=== PATIENT | female | born 1960 | race Caucasian/White ===

== ENCOUNTER 2018-01-30 11:09 | Emergency (ER) | payer OTHER ==
--- NOTE | 2018-01-30 11:17 | PDOC ---
History of Present Illness - General Chief Complaint: Weakness Stated Complaint: SHAKEY BLOOD SUGAR LOW IN MORNING FOR 2 WEEKS Time Seen by Provider: 01/30/18 11:16 - History of Present Illness Initial Comments: 01/30/18 11:53 Chief complaint: "Shaky" in the mornings with low blood sugar History of present illness: Patient is Georgian, translation by her daughter who speaks Venezuelan well. Patient states that for the last 2 weeks she has awakened in the morning feeling "shaky", and this resolved with eating. She is not known to be diabetic and takes no diabetes medications. However, an inlaw who is diabetic has a glucometer and she has recorded blood sugar levels below 50. Her symptoms do not occur at any other time of day. She eats a normal diet, 3 meals a day, and a bedtime snack. She does not exercise. Past medical history: Hypothyroidism, status post thyroidectomy, maintained on 150 g of Synthroid daily. Hypertension. Elevated cholesterol. Medications: Synthroid, Norvasc, and statin Social history: No tobacco alcohol or nonprescription drugs. Active and without disability Family history: Reviewed and noncontributory including diabetes or other metabolic diseases, cancer, early coronary artery disease, GI or pancreatic disease. Physical exam: Alert and oriented well-developed well-nourished no acute distress cheerful and cooperative Afebrile, vital signs normal No pallor or icterus PERRLA, fundi benign, ENT clear Neck supple without bruit mass or nodes. Thyroid is not palpable. Lungs clear CV regular without murmur rub or gallop 88/m Abdomen soft nontender without mass or organomegaly. Bowel sounds normal. Nondistended No CVAT Extremities no CCE Skin clear, no rash, adequate turgor and wet mucous membranes Neurological no deficits gait stable and unimpaired Impression: Morning hypoglycemia, alleviated with food. No known diabetes and on no diabetic medication. Thyroid disease, hypothyroidism due to surgery, maintained on Synthroid. Thyroid function is uncertain. Plan: CBC, chemistries, lipase, and TSH. Further evaluation and treatment depending on results. Past History - Past Medical History Allergies/Adverse Reactions: Allergies Allergy/AdvReac Type Severity Reaction Status Date / Time No Known Allergies Allergy Verified 01/30/18 11:13 Home Medications: Ambulatory Orders Amlodipine Besylate 5 mg PO DAILY 10/27/16 Atorvastatin Ca [Lipitor] 20 mg PO HS 10/27/16 Levothyroxine [Synthroid -] 150 mcg PO DAILY 10/27/16 Aspirin 81 mg PO DAILY 01/30/18 HTN: Yes Thyroid Disease: Yes - Suicide/Smoking/Psychosocial Hx Smoking History: Never smoked Have you smoked in the past 12 months: Yes Number of Cigarettes Smoked Daily: 15 'Breaking Loose' booklet given: 10/27/16 Hx Alcohol Use: No Drug/Substance Use Hx: No ED Treatment Course - LABORATORY CBC & Chemistry Diagram: 01/30/18 12:00 01/30/18 12:00 Medical Decision Making - Medical Decision Making 01/30/18 12:34 Additional history was obtained from the patient's family. The patient has been experimenting with Linzess for constipation, which was prescribed to a relative. She is concerned about defecating only every 4-5 days, though she is not uncomfortable and experiences no abdominal pain or bloating, she merely feels this is "abnormal" the first time she took it was 10 days ago, after which she experience the hypoglycemia. She continued to experience the hypoglycemia for several days, and then it resolved. Two days ago, however, she took another dose, and the hypoglycemia recurred. A search of the literature revealed that this is a known side effect of Linzess. This was explained to the patient and her family. Her son and daughter have ensured that she understands the relationship and that she will not take this medication again. She is also strongly cautioned to take no medication that is not prescribed to her specifically by her doctor. 01/30/18 13:56 Lipase is normal. CBC and chemistries without significant abnormalities. Hypoglycemia is most likely a result of taking Linzess ,as noted above. TSH is still pending and will be checked by the patient through her primary physician Dr. Martinez. Blood glucose now is normal. Patient is fully ambulatory and in no distress upon discharge with her family to follow-up as directed. *DC/Admit/Observation/Transfer Diagnosis at time of Disposition: Hypoglycemia - Discharge Dispostion Disposition: HOME Condition at time of disposition: Improved Admit: No - Referrals Referrals: Philip Martinez MD [Staff Physician] - - Patient Instructions Printed Discharge Instructions: DI for Hypoglycemia Additional Instructions: Do not take any more Linzess. Increase the fiber in your diet, drink more fluids, and use MiraLAX as needed. If constipation continues, consult GI specialist as recommended by your primary physician. Further testing may be necessary if the hypoglycemia recurs despite stopping the Linzess. - Post Discharge Activity
[2018-01-30] MEDS ORDERED: HEMOQUE TEST 1 EACH EACH ONE (11:28)
[2018-01-30 11:44] VITALS: BP 123/75; PULSE 78; TEMP 99.1; BMI 31.2
[2018-01-30 12:02] LABS: URINE APPEARANCE Clear; URINE BILIRUBIN Negative (NEGATIVE); URINE GLUCOSE (UA) Negative (NEGATIVE); URINE KETONE Negative (NEGATIVE); URINE LEUK ESTERASE Negative (NEGATIVE); URINE NITRITE Negative (NEGATIVE); URINE PROTEIN Negative (NEGATIVE); URINE UROBILINOGEN 0.2 (0.2-1.0)
[2018-01-30 12:05] LABS: URINE BLOOD 1+ (NEGATIVE); URINE COLOR YELLOW
[2018-01-30 12:15] LABS: BASO % 1.7 % (0-2.0); HEMATOCRIT 38.6 % (32.4-45.2); HEMOGLOBIN 13.5 GM/dl (10.7-15.3); LYMPH % 32.4 % (8-40); MCH 30.7 pg (25.7-33.7); MCHC 35.1 g/dl (32.0-36.0); MEAN CELL VOLUME 87.7 fl (80-96); MEAN PLT VOLUME 8.7 fl (7.5-11.1); MONO % 7.3 % (3.8-10.2); NEUT % 57.6 % (42.8-82.8); PLATELET COUNT 242 K/MM3 (134-434); RDW 12.6 % (11.6-15.6); WHITE BLOOD COUNT 6.2 K/mm3 (4.0-10.8)
[2018-01-30 12:27] LABS: URINE WBC FEW (0-5)
[2018-01-30 12:31] LABS: ALBUMIN 3.9 g/dl (3.5-5.0); ALK PHOS 77 U/L (32-92); ANION GAP 6 (8-16); BILIRUBIN,TOTAL 0.2 mg/dl (0.2-1.0); BLOOD UREA NITROGEN 7 mg/dl (7-18); CALCIUM 8.7 mg/dl (8.4-10.2); CHLORIDE 103 mmol/L (98-107); CO2 27 mmol/L (22-28); CREATININE 0.5 mg/dl (0.6-1.3); GLUCOSE,RANDOM 76 mg/dl (74-106); POTASSIUM 3.7 mmol/L (3.5-5.1); SGOT/AST 26 U/L (10-42); SGPT/ALT 30 U/L (10-40); SODIUM 136 mmol/L (136-145); TOT PROT 6.9 g/dl (6.4-8.3)
== END 2018-01-30 14:26 | disposition home or self-care (01) ==
LOC: FER 11:09
DX: E16.2 Hypoglycemia, unspecified (principal); E89.0 Postprocedural hypothyroidism; I10 Essential (primary) hypertension; Z79.82 Long term (current) use of aspirin
CPT/HCPCS: 36415; 80053; 81003; 81015; 82962; 83690; 84443; 85025; 99281-25

== ENCOUNTER 2019-09-02 07:04 | Day surgery (SDC) | payer OTHER ==
[~2019-09-02 07:04] MED LIST: BUPIVACAINE HCL/PF 0.25% (2.5MG/ML) 10 ML VIAL IJ ONE; LIDOCAINE HCL 1%, 10 MG/ML (50 mL VIAL) IJ ONE
[2019-09-02] MEDS ORDERED: LIDOCAINE HCL 1%, 10 MG/ML (20ML VIAL) ONE (07:24)
[2019-09-02] MEDS ORDERED: BUPIVACAINE HCL/EPINEPHRINE/PF 30 ML VIAL IJ ONE (07:25)
[2019-09-02] MEDS ORDERED: BETAMET ACET/BETAMET NA PH 30 MG/5 ML VIAL ONE (07:26)
[2019-09-02 07:29] VITALS: BMI 34.1
[2019-09-02] MEDS ORDERED: PROPOFOL 20 ML ONE (08:05)
[2019-09-02] MEDS ORDERED: MIDAZOLAM HCL 2 MG/2 ML SINGLE DOSE VIAL ONE (09:01)
[2019-09-02] MEDS ORDERED: BUPIVACAINE HCL/PF 0.25% (2.5MG/ML) 10 ML VIAL IJ ONE ×2 (09:27)
[2019-09-02] MEDS ORDERED: LIDOCAINE HCL 1%, 10 MG/ML (50 mL VIAL) IJ ONE ×2 (09:27)
[2019-09-02] MEDS ORDERED: BETAMET ACET/BETAMET NA PH 30 MG/5 ML VIAL IM ONE ×3 (09:28)
[2019-09-02] MEDS ORDERED: IOHEXOL 180 MG/1 ML ML IJ ONE ×2 (09:28)
[2019-09-02] MEDS ORDERED: oxyCODONE HCL 5 MG TABLET PO PRN (09:46)
[2019-09-02] MEDS ORDERED: ONDANSETRON 4 MG/2 ML VIAL IVPUSH PRN (09:46)
[2019-09-02] MEDS ORDERED: LACTATED RINGERS SOLUTION 1,000 ML IV SCH (10:00)
[2019-09-02 10:56] VITALS: TEMP 97.4
[2019-09-02 13:33] VITALS: BP 121/69; PULSE 66
--- NOTE | 2019-09-06 20:53 | PROC ---
Procedure Note Procedure: Date of service: 09/02/2019 Preoperative Diagnosis: Low back pain and lumbar radiculopathy on Left Postoperative Diagnosis: Same Procedure Performed: Lumbar Epidural Steroid Injection (LESI) on Left L4-5 with dye under Fluoroscopy Anesthesia: Local / MAC Anesthesiologist: Procedure: I discussed with the patient in detail about the risks, benefits, and alternatives to treatment not only limited to infection, headache, numbness , weakness, and injury to nerves, blood vessels and muscles. The patient understood, agreed and signed the written consent. The patient was placed in the prone position with the head, abdomen and legs supported with the pillows. The lumbosacral area was prepped and draped with Betadine times three in a sterile fashion. Lumbar vertebrae were identified under the C-arm. At L4-5 level on the Left side, 3 ml of 1 % Lidocaine was infiltrated into the skin and subcutaneous tissue. A 3 inch, #20 gauge Tuohy needle was advanced to the epidural space with loss of resistance technique under fluoroscopic guidance. Aspiration was negative for cerebrospinal fluid and blood. 2ml of Omnipaque ( radio-opaque dye) was injected to confirm the tip of the needle into epidural space and spread of dye. There was no CSF or vascular spread. The spread of dye was noted cranially and caudally on epidurogram. Aspiration was done again which was negative. A solution of 2.5 ml of Celestone 2.5 ml of 0.25% Marcaine and a total of 5 ml was injected slowly. While Tuohy needle was withdrawn 2.0 ml of 1 % Lidocaine was infiltrated. Bleeding was checked. Betadine was wiped off. A sterile bandage was placed. The patient tolerated the procedure well. There were no immediate complications. The patient was transferred to the recovery room. The patient was observed for some time and discharged as per ASU criteria. The patient was told to apply ice at the injection site. Follow up appointment was given and also call my office at [phone]. If there is any problem, call my office or report to Emergency Room. Bar Frazier M.D.
== END 2019-09-02 11:30 | disposition home or self-care (01) ==
LOC: JASU-SURG 07:04
PROVIDERS: ATTEND Physical Medicine & Rehabilitation
PROC: 3E0R33Z Introduction of Anti-inflammatory into Spinal Canal, Percutaneous Approach (ICD-10-PCS; 2019-09-02)
PROC: B01BYZZ Fluoroscopy of Spinal Cord using Other Contrast (ICD-10-PCS; 2019-09-02)
PROC: 3E0R3BZ Introduction of Anesthetic Agent into Spinal Canal, Percutaneous Approach (ICD-10-PCS; principal; 2019-09-02 08:00)
DX: M54.16 Radiculopathy, lumbar region (principal); M54.5 Low back pain
CPT/HCPCS: 76000-TC-FY; 94760

== ENCOUNTER 2022-05-24 17:36 | Observation (INO) | payer OTHER ==
[2022-05-24 17:47] VITALS: BMI 31.5
[2022-05-24 18:56] LABS: BASO % 0.5 % (0-2.0); EOS % 0.3 % (0-4.5); HEMATOCRIT 37.6 % (32.4-45.2); HEMOGLOBIN 12.9 GM/dL (10.7-15.3); LYMPH % 21.3 % (8-40); MCH 29.6 pg (25.7-33.7); MCHC 34.3 g/dl (32.0-36.0); MEAN CELL VOLUME 86.1 fl (80-96); MEAN PLT VOLUME 8.4 fl (7.5-11.1); NEUT % 73.9 % (42.8-82.8); PLATELET COUNT 251 10^3/uL (134-434); RBC 4.37 M/mm3 (3.60-5.2); RDW 13.3 % (11.6-15.6)
[2022-05-24 19:04] LABS: INR 1.01 (0.83-1.09); PROTHROMBIN TIME (PATIENT) 11.6 SEC (9.7-13.0)
[2022-05-24 19:06] LABS: ACTIVATED PTT 31.5 SECONDS (25.2-36.5)
[2022-05-24 19:16] LABS: ALBUMIN 4.3 g/dl (3.4-5.0); CALCIUM 8.7 mg/dL (8.5-10.1)
[2022-05-24 19:17] LABS: BLOOD UREA NITROGEN 9.6 mg/dL (7-18); MAGNESIUM 2.4 mg/dL (1.8-2.4)
[2022-05-24 19:20] LABS: CREATININE 0.7 mg/dL (0.55-1.3)
[2022-05-24 19:21] LABS: BILIRUBIN,TOTAL 0.4 mg/dL (0.2-1)
[2022-05-24] MEDS ORDERED: POLYETHYLENE GLYCOL (HEALTHYLAX) 3350 17 GM PACKET PO PRN (21:53)
[2022-05-24] MEDS ORDERED: FAMOTIDINE 20 MG/50 ML IVPB 20 MG/50 ML MG IVPB ONE ×2 (21:55→22:19)
[2022-05-24] MEDS ORDERED: ACETAMINOPHEN 1000 MG/100 ML BAG IVPB PRN (21:56)
[2022-05-24] MEDS ORDERED: MAG HYDROX/AL HYDROX/SIMETH 30 ML UNIT-DOSE CUP PO PRN (22:02)
[2022-05-24 23:51] LABS: EPI CELLS 1 /uL (0-25.1); HYALINE CASTS 0 /uL (0-3.1); PH,URINE 7.5 (5.0-8.0); URINE APPEARANCE CLEAR; URINE BACTERIA 24 /uL (0-1359); URINE BILIRUBIN NEGATIVE (NEGATIVE); URINE COLOR YELLOW; URINE GLUCOSE (UA) NEGATIVE (NEGATIVE); URINE KETONE NEGATIVE (NEGATIVE); URINE LEUK ESTERASE NEGATIVE (NEGATIVE); URINE NITRITE NEGATIVE (NEGATIVE); URINE PROTEIN NEGATIVE (NEGATIVE); URINE RBC 12 /uL (0-23.9); URINE UROBILINOGEN 0.2 mg/dL (0.2-1.0); URINE WBC 0 /uL (0-25.8)
[2022-05-25 01:43] VITALS: BP 109/66; PULSE 13; RESP 14; TEMP 98
[2022-05-25 08:31] LABS: BASO % 0.5 % (0-2.0); EOS % 1.3 % (0-4.5); HEMATOCRIT 36.1 % (32.4-45.2); HEMOGLOBIN 12.3 GM/dL (10.7-15.3); LYMPH % 36.5 % (8-40); MCH 29.6 pg (25.7-33.7); MCHC 34.2 g/dl (32.0-36.0); MEAN CELL VOLUME 86.5 fl (80-96); MEAN PLT VOLUME 8.3 fl (7.5-11.1); MONO % 7.1 % (3.8-10.2); NEUT % 54.6 % (42.8-82.8); PLATELET COUNT 237 10^3/uL (134-434); RBC 4.17 M/mm3 (3.60-5.2); RDW 13.5 % (11.6-15.6); WHITE BLOOD COUNT 5.6 K/mm3 (4.0-10.0)
[2022-05-25 08:45] LABS: CALCIUM 8.6 mg/dL (8.5-10.1)
[2022-05-25 08:46] LABS: BLOOD UREA NITROGEN 8.6 mg/dL (7-18)
[2022-05-25 08:49] LABS: CREATININE 0.7 mg/dL (0.55-1.3)
[2022-05-25] MEDS ORDERED: ENOXAPARIN NA (PORCINE) 40 MG/0.4 ML DISP.SYRIN SQ ONE (09:12)
[2022-05-25] MEDS ORDERED: ASPIRIN 81 MG CHEWABLE TABLETS PO SCH ×2 (09:30→10:00)
[2022-05-25] MEDS ORDERED: ENOXAPARIN NA (PORCINE) 40 MG/0.4 ML DISP.SYRIN SQ SCH (10:00)
[2022-05-25] MEDS ORDERED: LEVOTHYROXINE NA 50 MCG TABLET (FP) PO SCH (10:00)
[2022-05-25] MEDS ORDERED: LEVOTHYROXINE NA 50 MCG TABLET (FP) ONE (10:47)
[2022-05-25] MEDS ORDERED: ASPIRIN 81 MG CHEWABLE TABLETS ONE (10:47)
[2022-05-25] MEDS ORDERED: ATORVASTATIN CA 20 MG TABLET (FP) PO SCH (22:00)
[2022-05-25] MEDS ORDERED: ACETAMINOPHEN 325 MG TABLET (FP) PO PRN (22:00)
== END 2022-05-25 11:15 | disposition home or self-care (01) ==
LOC: JER 17:36 → JERBED 21:46 → INTOOBSV 21:46
PROVIDERS: ADMIT Hospitalist; ATTEND Family Medicine
PROC: 3E023GC Introduction of Other Therapeutic Substance into Muscle, Percutaneous Approach (ICD-10-PCS; principal; 2022-05-24)
PROC: 3E033GC Introduction of Other Therapeutic Substance into Peripheral Vein, Percutaneous Approach (ICD-10-PCS; 2022-05-24)
DX: R07.9 Chest pain, unspecified (principal); E78.00 Pure hypercholesterolemia, unspecified; R00.2 Palpitations; E03.9 Hypothyroidism, unspecified; R73.03 Prediabetes; K27.9 Peptic ulcer, site unspecified, unspecified as acute or chronic, without hemorrhage or perforation; E66.8 Other obesity; Z68.31 Body mass index [BMI] 31.0-31.9, adult; Z90.89 Acquired absence of other organs; I10 Essential (primary) hypertension; Z86.39 Personal history of other endocrine, nutritional and metabolic disease; Z87.891 Personal history of nicotine dependence
CPT/HCPCS: 0241U-QW; 36415; 71046-TC-FY; 80048; 80053; 81003; 82550; 82553; 83735; 84443; 84484; 85025; 85610; 85730; 87077; 87086; 87186; 93005; 93010; 96365; 96372; 99285-25; G0378